=== PATIENT | male | born 1970 | race Caucasian/White ===

== ENCOUNTER 2017-11-11 15:53 | Inpatient (IN) | payer OTHER ==
[~2017-11-11] VITALS: Ht 193 cm; Wt 96.6 kg
--- NOTE | 2017-11-11 16:06 | ED PSY CRISIS COLLATERAL NOTE ---
Collateral Note Collateral Note Family/Inform/Shira Contacts: Crisis recieved call from Karen Khan APRN ([phone]). Karen stated that she started seeing the patienton 10/28/17 and prior to her assuming care, Vishal Richardson is the prior prescriber. Karen states that she thinks the patient needs psychiatric hospitalization due to hypomanic which is worsening with pt hearing voices and concentration worsening. Patient has along history of bipolar disorder. Patient recieved ECT in the 90s. 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 Patient is currently prescribed Zyprexa 20 mg, Depakote 500 mg (new), Klonopin 0.5 mg (two tabs at bedtime) and Zoloft 50 mg. Karen states she plans to discontinue the zoloft.
[2017-11-11 16:43] LABS: ABSOLUTE BASOPHIL COUNT 0 /CUMM (0.0-0.2); ABSOLUTE EOSINOPHIL COUNT 0.3 /CUMM (0.0-0.7); ABSOLUTE LYMPH COUNT 1.8 /CUMM (1.2-3.4); ABSOLUTE MONOCYTE COUNT 0.6 /CUMM (0.10-0.60); BASOPHIL % 0.5 % (0.0-2.0); EOSINOPHIL % 3.8 % (0-5); GRANULOCYTE % 58.9 % (42.2-75.2); MEAN CORPUSCULAR HGB CONC 34.1 G/DL (33.0-37.0); MEAN CORPUSCULAR VOLUME 87.9 FL (80.0-94.0); MEAN PLATELET VOLUME 8.6 FL (7.4-10.4); PLATELET COUNT 176 /CUMM (130-400); RBC DISTRIBUTION WIDTH 13.5 % (11.5-14.5); RED BLOOD CELL CT 4.55 /CUMM (4.70-6.10); WHITE BLOOD CELL COUNT 6.7 /CUMM (4.8-10.8)
--- NOTE | 2017-11-11 17:12 | ED PSYCHIATRIC COMPLAINT ---
History of Present Illness General Chief Complaint: Psychiatric Related Complaint Stated Complaint: REQ PSY EVAL Source: patient Exam Limitations: clinical condition Vital Signs & Intake/Output Vital Signs & Intake/Output Vital Signs Date Time Temp Pulse Resp B/P B/P Pulse O2 O2 Flow FiO2 Mean Ox Delivery Rate 11/13 0759 97.1 82 118/78 11/12 2001 97.7 94 138/80 11/12 1629 97 144/88 11/12 1252 78 139/82 Allergies Coded Allergies: lithium (HYPOTHYROID 11/11/17) succinylcholine (HYPOTHERMIA 11/11/17) Triage Note: PT STATES HE IS HAVING ANXIETY AND HE HAS BEEN UNABLE TO THINK AND HE STATES HE FEELS LIKE HE IS NOT PART OF HIMSELF. PT STATES THIS HAS NEVER HAPPEND TO HIM BEFORE. PT STATES HE IS NOT SURE IF HE HAS BIPOLAR OR HYPOMANIA. PT CURRENTLY ON ZYPREXA 20MG AT HS AND IS NOT BEEN ABLE TO SLEEP. PT ALSO TAKING LAMICTAL 100MG BID, DEPAKOTE 100MG HS. PT STATES HE JUST STARTED THE DEPAKOTE 3 DAYS AGO. PT DENIES SI/HI BUT STATE SHE IS IRRITABLE Triage Nurses Notes Reviewed? yes Onset: Gradual Duration: months Timing: single episode today Severity: severe Associated Symptoms: anxiety, impaired concentration, insomnia HPI: patient is a 47 y/o male, PMH of bipolar d/o with psychotic features and former diabetic, presents with acute worsening of psychosis. patient states that his symptoms have been going on for many months but it is acutely worse today as he had to leave work in order to seek evaluation. 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 he reports being unable to concentrate at work and that his head "isnt right". patient reports multiple life stressors including marriage difficulties and work stressors. he states that he is compliant with his zyprexa and lamictal. (Robb Guillermo) Reconcile Medications Clonazepam 0.5 MG TABLET 1 TAB PO TIDPRN ANXIETY (Reported) Divalproex Sodium (Depakote ER) 250 MG TAB.ER.24H 1 TAB PO QPM BIPOLAR ( Reported) Olanzapine 20 MG TABLET 1 TAB PO QPM BIPOLAR (Reported) (Ulises LYNCHDayami) Past History Travel History Traveled to [place] past 21 day No Medical History Any Pertinent Medical History? see below for history Cardiovascular: hyperlipidemia Psychiatric: anxiety, bipolar disease Surgical History Surgical History: non-contributory Psychosocial History Who do you live with Spouse What is your primary language Ecuadorean Tobacco Use: Never used ETOH Use: occasional use Illicit Drug Use: denies illicit drug use Family History Hx Contributory? 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 EENTM: Reports: no symptoms. Respiratory: Reports: no symptoms. Cardiovascular: Reports: no symptoms. GI: Reports: no symptoms. Genitourinary: Reports: no symptoms. Musculoskeletal: Reports: no symptoms. Skin: Reports: no symptoms. Neurological/Psychological: Reports: no symptoms. Hematologic/Endocrine: Reports: no symptoms. Immunologic/Allergic: Reports: no symptoms. All Other Systems: Reviewed and Negative (Robb Guillermo) Physical Exam Physical Exam General Appearance: well developed/nourished, alert, anxious, moderate distress Head: atraumatic, normal appearance Eyes: Bilateral: normal appearance, EOMI. Ears, Nose, Throat: normal ENT inspection, hearing grossly normal Neck: normal inspection Respiratory: normal breath sounds, no respiratory distress Cardiovascular: regular rate/rhythm Neurological/Psychiatric: awake, anxious, oriented x 3 Behavoir/Eye Contact/Speech: cooperative Thoughts/Hallucinations: paranoid SAD PERSONS Done? patient not suicidal (Robb Guillermo) Progress Differential Diagnosis: dementia, drug intoxication, drug overdose, drug withdrawal, BIPOLAR, PSYCHOSIS, ANXIETY, DEPRESSION, Plan of Care: Orders Procedure Date/time Status CULTURE,URINE 11/12 1342 Active URINALYSIS 11/12 1342 Complete INIT HSP (30 MIN) 11/12 UNK Complete Change service to 11/12 UNK Active Current Medications Sig/Bucky Start time Last Medication Dose Stop Time Status Admin Clonazepam 1 MG AT BEDTIME 11/12 2200 AC 11/12 (Klonopin 1MG Tab) 11/19 2158 220 Divalproex Sodium 500 MG QPM 11/12 2200 AC 11/12 (Depakote ER) 220 Olanzapine 20 MG AT BEDTIME 11/12 2200 AC 11/12 (Zyprexa) 220 Benztropine Mesylate 1 MG Q6P PRN 11/12 1715 AC 11/13 (Cogentin 1 MG 0009 Tablet) Benztropine Mesylate 1 MG Q6P PRN 11/12 1715 AC (Cogentin) Haloperidol 5 MG Q6P PRN 11/12 1715 AC 11/13 (Haldol) 0009 Haloperidol 5 MG Q6P PRN 11/12 171 AC (Haldol) Lorazepam 2 MG Q6P PRN 11/12 171 AC (Ativan) Atorvastatin Calcium 10 MG 1700 11/12 1700 AC 11/12 (Lipitor) 171 Polyethylene Glycol 17 GM DAILY 11/12 1341 AC 11/13 (Miralax) 0849 Diphenhydramine HCl 50 MG AT BEDTIME NEED.. 11/11 2230 AC (Benadryl) Lamotrigine 100 MG BID 11/11 2218 AC 11/13 (LaMICtal) 0849 Laboratory Tests 11/12/17 1801: Urine Color YEL, Urine Clarity CLEAR, Urine pH 6.0, Ur Specific [place] >= 1.030 , Urine Protein NEG, Urine Ketones TRACE H, Urine Nitrite NEG, Urine Bilirubin NEG, Urine Urobilinogen 0.2, Ur Leukocyte Esterase NEG, Ur Microscopic EXAM NOT REQUIRED, Urine Hemoglobin NEG, Urine Glucose NEG Microbiology 11/12 180 URINE ROUT: Urine Culture - RES (Robb Guillermo) Departure Departure Disposition: STILL A PATIENT Condition: Stable Clinical Impression Primary Impression: Bipolar disorder with psychotic features Referrals: Unknown (PCP/Family) Departure Forms: Customer Survey General Discharge Information Psych Admission Note Psychiatric Admission: I have seen and evaluated SHRAVAN BLACKMAN. I have also reviewed all the pertinent lab results and diagnostic results. SHRAVAN BLACKMAN will be admitted to our inpatient Psychiatric unit for treatment and care. (Robb Guillermo) Psych Admission Note Psychiatric Admission: I have seen and evaluated SHRAVAN BLACKMAN. I have also reviewed all the pertinent lab results and diagnostic results. SHRAVAN BLACKMAN will be admitted to our inpatient Psychiatric unit for treatment and care. PA/HAND SCUDDER Co-Sign Statement Statement: ED Attending supervision documentation- [] I saw and evaluated the patient. I have also reviewed all the pertinent lab results and diagnostic results. I agree with the findings and the plan of care as documented in the PA's/HAND SCUDDER's documentation. [X] I have reviewed the ED Record and agree with the PA's/HAND SCUDDER's documentation. [] Additions or exceptions (if any) to the PAs/HAND SCUDDER's note and plan are summarized below: [] (Ulises LYNCH,Dayami)
--- NOTE | 2017-11-11 19:46 | ED PSYCH CRISIS CONSULTATION ---
Crisis Consult Basic Assessment Date of Consult: 11/11/17 Responsible Person/Accompanied By: self/ Minori Insurance Authorization: Insurance #1: Insurance name: [employer] [place]. Phone number: Policy number: [id number] Group number: Authorization number: ED Provider: Patient's ED Provider: Robb Guillermo Primary Care Physician: Patient's PCP: Unknown PCP's Phone Number: Current Psychiatrist: Karen Lombardo MASTER CONTROL TECHNICIAN [phone] Chief Complaint: Psychiatric Related Complaint Patient's Quote: I don't feel I'm part of myself Present Illness: Pt is a 47 yo male presenting at [place] ED this afternoon for a psychiatric evaluation. 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 He contacted his MASTER CONTROL TECHNICIAN ( Karen Lombardo) who instructed him to come to [place] for an evaluation. Pt has a hx of inpatient psychiatric admissions in the for suicide attempts and following his last inpatient in 1997 he received outpatient ECT treatment. Pt has a diagnosis of Bipolar d/o with psychotic features and reports maintaining relative stability with medication management past 20 yrs. Pt reports starting to experience worsening symptoms about 6 months ago and more acute symptoms over the past few weeks. Pt reports inability to concentrate, inability to sleep, paranoia, hearing voices and having a sense that he is outside of his body all the time looking at himself. Pt reports being scared and worried he will lose his job. Pt reports recent med changes include starting Latuda but then stopping it because it was too expensive; increasing Zyprexa from 5mg to 20mg at begining Depakote 3 days ago. In addition to experiencing stress at work pt reports experiencing marital stress. He reports being 10 yrs and his is an MASTER CONTROL TECHNICIAN. They have 2 children and are currently in family therapy. He reports his is offering him no support during this time. Pt denies current SI/HI but reports hearing voices and seeing things out of the corner of his eyes. Pt reports occasional glass of wine 1-2x/wk and denies substance use. Pt presents as alert, cooperative, anxious and OX3. Case reviewed with Dr Carranza and pt meets criteria for inpatient psychiatric admission. Pt in agreement with plan and has signed voluntary admission paperwork. Patient's Address: [place] [address] Other Phone Number: Who Do You Live With? Family Family/Informants Interviewed: collateral provided by Karen Lombardo APRN [phone] - see note Allergies - Coded Allergies: lithium (HYPOTHYROID 11/11/17) succinylcholine (HYPOTHERMIA 11/11/17) Laboratory Results: Laboratory Tests 11/11/17 1630: Urine Opiates Screen < 100.00, Methadone Screen < 40, Barbiturate Screen < 60, Ur Phencyclidine Scrn < 6.00, Amphetamines Screen < 100, U Benzodiazepines Scrn 258 H, Urine Cocaine Screen < 50, Urine Cannabis Screen 12.30 11/11/17 1625: Anion Gap 11, Estimated GFR > 60, BUN/Creatinine Ratio 16.7, Glucose 160 H, Calcium 9.3, Total Bilirubin 0.3, AST 30, ALT 37, Alkaline Phosphatase 62, Total Protein 7.1, Albumin 4.3, Globulin 2.8, Albumin/Globulin Ratio 1.5, TSH 1.820, Free T4 0.62 L, CBC w Diff NO MAN DIFF REQ, RBC 4.55 L, MCV 87.9, MCH 30.0, RDW 13.5, MPV 8.6, Gran % 58.9, Lymphocytes % 27.5, Monocytes % 9.3, Eosinophils % 3.8, Basophils % 0.5, Absolute Granulocytes 4.0, Absolute Lymphocytes 1.8, Absolute Monocytes 0.6, Absolute Eosinophils 0.3, Absolute Basophils 0, PUBS MCHC 34.1, Serum Alcohol < 10.0 Past History Past Medical History Cardiovascular: hyperlipidemia Psychiatric: anxiety, bipolar disease Past Surgical History Surgical History: non-contributory Psychosocial History Strengths/Capabilities: pt insightful/motivated to get help. PA at [employer] Psychiatric Treatment History Psych Treatment Psychiatric Treatment Yes Inpatient Treatment Yes Outpatient Treatment Yes Location of Treatment currently outpatient with Karen Lombardo APRN; hx of inpatient-last 1997 Reason for Treatment bipolar with psychotic features Dates of Treatment multiple inpatients during . last inpatient 1997 Response to Treatment relatively stable until 6 months ago Diagnosis by History: Bipolar with psychotic features Substance Use/Abuse History Drug Use/Abuse Substances Used/Abused No Substance Abuse Treatment Substance Abuse Treatment Past Substance Abuse [place] No Inpatient Treatment No Outpatient Treatment No Comments: pt reports etoh 2x/wk - 1-2 glasses of wine; pt denies substance use Current Mental Status Mental Status Orientation: Person, Place, Situation Affect: Anxious, Flat, Hopeless, Manic Speech: WNL Neuro-vegetative: Concentration Poor, Helpless, Sleep Disturbance Appearance Appearance- Dress/Hygiene: hospital scrubs; sitting up in medical bed; good eye contact; glasses; groomed Behaviors Thought Process: WNL Thought Content: Auditory Hallucinations, Grandiose, Paranoid, Visual Hallucinations Memory: Impaired Insight: Fair SI/HI Risk Assessment Past Suicidal Ideation/Attempts Yes Current Suicidal Ideation/Att No Past Homicidal Ideation/Att: No Current Homicidal Ideation/Attempts No Degree of Intent: None Risk Factors: high anxiety/distress, history of suicide atmpts, SA/MH hospitalized Lethality Ratin PTSD Checklist PTSD Done? patient declined ED Management Sitter: Yes Restraints: No DSM5/PS Stressors/Medical Prob Diagnosis' (DSM 5, Stressors, Medical): Bipolar d/o with psychotic features F31.2 marital work Current GAF: 20 Comments: Pt reports paranoia, brennan; can't stay asleep and scared. Pt worried he will get fired if work finds out about his mental health. Departure Disposition Psych Medical Clearance Date: 11/11/17 Medically Cleared at: 0 Time Started: 1829 Time Ended: 1914 Psychiatrist Consulted: Nikki Carranza MD Date Disposition Established: 11/11/17 Time Disposition Established: 1929 Plan for Disposition - Modality: Inpatient Psychiatry Facility: [facility] Rationale for Disposition: Pt meets criteria for inpatient psychiatric admission for medication management and stabilization. Type of IP Admission: Voluntary Referrals Unknown (PCP/Family)
[2017-11-11] MEDS ORDERED: OLANZAPINE20 M1 PO (19:57)
[2017-11-11] MEDS ORDERED: DEPAKOTE ER250 M1 PO (19:57)
[2017-11-11] MEDS ORDERED: CLONAZEPAM0.5 M2 PO (19:58)
--- NOTE | 2017-11-11 20:10 | IP CRISIS DIAG ASSESS PSYCH ---
Diagnostic Assessment Basic Assessment Insurance Authorization: Insurance #1: Insurance name: [employer] [place] [place]. Phone number: Policy number: [id number] Group number: Authorization number: [id number] 1 day authorization. Case needs review tomorrow [phone] Primary Care Physician: Patient's PCP: Unknown PCP's Phone Number: Patient's Quote: I don't feel I'm part of myself Present Illness: Pt is a 47 yo male presenting at [place] ED this afternoon for a psychiatric evaluation. 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 He contacted his TUBE SORTER ( Karen Lombardo) who instructed him to come to [place] for an evaluation. Pt has a hx of inpatient psychiatric admissions in the for suicide attempts and following his last inpatient in 1997 he received outpatient ECT treatment. Pt has a diagnosis of Bipolar d/o with psychotic features and reports maintaining relative stability with medication management past 20 yrs. Pt reports starting to experience worsening symptoms about 6 months ago and more acute symptoms over the past few weeks. Pt reports inability to concentrate, inability to sleep, paranoia, hearing voices and having a sense that he is outside of his body all the time looking at himself. Pt reports being scared and worried he will lose his job. Pt reports recent med changes include starting Latuda but then stopping it because it was too expensive; increasing Zyprexa from 5mg to 20mg at begining Depakote 3 days ago. In addition to experiencing stress at work pt reports experiencing marital stress. He reports being 10 yrs and his is an TUBE SORTER. They have 2 children and are currently in family therapy. He reports his is offering him no support during this time. Pt denies current SI/HI but reports hearing voices and seeing things out of the corner of his eyes. Pt reports occasional glass of wine 1-2x/wk and denies substance use. Pt presents as alert, cooperative, anxious and OX3. Case reviewed with Dr Carranza and pt meets criteria for inpatient psychiatric admission. Pt in agreement with plan and has signed voluntary admission paperwork. Patient's Address: [address] [place] [address] Other Phone Number: Who Do You Live With? Family Feel Safe Where You Live? Yes Feel Safe in Your Relationship Yes Marital Status: Do You Have Children? Yes Primary Language? Tuvaluan Language(s) Spoken At Home: Tuvaluan Family/Informants Interviewed: collateral provided by Karen Lombardo APRN [phone] - see note Allergies - Coded Allergies: lithium (HYPOTHYROID 11/11/17) succinylcholine (HYPOTHERMIA 11/11/17) Current Medications - Scheduled Medications Clonazepam 0.5 MG TABLET 1 TAB PO TIDPRN ANXIETY #45 (Reported) Entered as Reported by Keke Rasmussen on 11/11/171957 Divalproex Sodium (Depakote ER) 250 MG TAB.ER.24H 1 TAB PO QPM BIPOLAR #60 ( Reported) Entered as Reported by Keke Rasmussen on 11/11/171956 Olanzapine 20 MG TABLET 1 TAB PO QPM BIPOLAR #30 (Reported) Entered as Reported by Keke Rasmussen on 11/11/171956 Consequences of Psych Med Use: pt reports recent med changes haven't helped Lab Results: Laboratory Tests 11/11/17 1630: Urine Opiates Screen < 100.00, Methadone Screen < 40, Barbiturate Screen < 60, Ur Phencyclidine Scrn < 6.00, Amphetamines Screen < 100, U Benzodiazepines Scrn 258 H, Urine Cocaine Screen < 50, Urine Cannabis Screen 12.30 11/11/17 1625: Anion Gap 11, Estimated GFR > 60, BUN/Creatinine Ratio 16.7, Glucose 160 H, Calcium 9.3, Total Bilirubin 0.3, AST 30, ALT 37, Alkaline Phosphatase 62, Total Protein 7.1, Albumin 4.3, Globulin 2.8, Albumin/Globulin Ratio 1.5, TSH 1.820, Free T4 0.62 L, CBC w Diff NO MAN DIFF REQ, RBC 4.55 L, MCV 87.9, MCH 30.0, RDW 13.5, MPV 8.6, Gran % 58.9, Lymphocytes % 27.5, Monocytes % 9.3, Eosinophils % 3.8, Basophils % 0.5, Absolute Granulocytes 4.0, Absolute Lymphocytes 1.8, Absolute Monocytes 0.6, Absolute Eosinophils 0.3, Absolute Basophils 0, PUBS MCHC 34.1, Serum Alcohol < 10.0 Toxicology Screen Completed? Yes Results: negative Past History Abuse/Trauma History Trauma History/Current Trauma: Denies Psychosocial History Strengths/Capabilities: pt insightful/motivated to get help. 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 last inpatient 1997 Response to Treatment relatively stable until 6 months ago Diagnosis by History: Bipolar with psychotic features Risk Factors: high anxiety/distress, history of suicide atmpts, SA/MH hospitalized Substance Use/Abuse History Drug Use/Abuse minimum 12mo Hx Substances Used/Abused No Substance Abuse Treatment Substance Abuse Treatment Past Substance Abuse [place] No Inpatient Treatment No Outpatient Treatment No Education History Highest Level of Education: advanced graduate/Ph.D. Preferred Learning Style: visual, auditory, experiential Current Mental Status Mental Status Orientation: Person, Place, Situation Affect: Anxious, Flat, Hopeless, Manic Speech: WNL Neuro-vegetative: Concentration Poor, Helpless, Sleep Disturbance Appearance Appearance- Dress/Hygiene: hospital scrubs; sitting up in medical bed; good eye contact; glasses; groomed Behaviors Thought Process: WNL Thought Content: Auditory Hallucinations, Grandiose, Paranoid, Visual Hallucinations Memory: Impaired Insight: Fair SI/HI Risk Assessment - Minimum 6mo History- Past Suicidal Ideation/Attempts Yes Current Suicidal Ideation/Att No Past Homicidal Ideation/Att: No Current Homicidal Ideation/Attempts No Degree of Intent: None Risk Factors: high anxiety/distress, history of suicide atmpts, SA/MH hospitalized Lethality Ratin Needs/Init [place] Plan/Goals: Psychiatric evaluation medication assessment individual, family and group tx coordinated discharge planning AUDIT-C Questionnaire: AUDIT-C Questionnaire: Response Value ETOH use in the past year 2-4 times/month 2 # drinks typical/day 1 or 2 0 6 or > drinks per occasion Less than monthly 1 Total 3 DSM5/PS Stressors/Medical Prob Diagnosis' (DSM 5, Stressors, Medical): Bipolar d/o with psychotic features F31.2 marital work Current GAF: 20 Comments: Pt reports paranoia, brennan; can't stay asleep and scared. Pt worried he will get fired if work finds out about his mental health.
--- NOTE | 2017-11-12 07:59 | Cons- Medical ---
General Information and HPI Consulting Request Date of Consult: 11/12/17 Requested By: Nikki Carranza MD Reason for Consult: Medical H&P Source of Information: patient, old records History of Present Illness: 47-year-old male past medical history of questionable bipolar disorder who is here for depressive and psychotic symptoms. I was called for medical H&P. Patient takes medication for hyperlipidemia and says he's had 5 back surgeries and occasionally uses Motrin for pain. He says that when he was much heavier he had uncontrolled sugars but since is voluntary weight loss his sugars have been in control. Denies nausea vomiting or diarrhea and denies cough or sputum. Says he is chronically constipated and also says that he's been having a problem with urination in terms of not being able to make it to the bathroom on time. Allergies/Medications Allergies: Coded Allergies: lithium (HYPOTHYROID 11/11/17) succinylcholine (HYPOTHERMIA 11/11/17) Home Med List: Clonazepam 0.5 MG TABLET 1 TAB PO TIDPRN ANXIETY (Reported) Divalproex Sodium (Depakote ER) 250 MG TAB.ER.24H 1 TAB PO QPM BIPOLAR ( Reported) Olanzapine 20 MG TABLET 1 TAB PO QPM BIPOLAR (Reported) Current Medications: Current Medications Sig/Bucky Start time Last Medication Dose Route Stop Time Status Admin Clonazepam 0.5 MG Q8P PRN 11/11 2215 AC PO 11/18 2214 Diphenhydramine HCl 50 MG AT BEDTIME NEED.. 11/11 2230 AC PO Divalproex Sodium 500 MG QPM 11/12 2200 AC PO Lamotrigine 100 MG BID 11/11 2218 AC 11/11 PO 2311 Lorazepam 0 .STK-MED ONE 11/11 1918 DC PO Lorazepam 1 MG ONE ONE 11/11 1914 DC 11/11 PO 11/11 1915 191 Olanzapine 20 MG AT BEDTIME 11/12 2200 AC PO Review of Systems Review of Systems Constitutional: Denies: no symptoms, chills, diaphoresis, fever. Cardiovascular: Denies: no symptoms, chest pain, edema, orthopena. Respiratory: Denies: no symptoms, cough, hemoptysis, orthopnea. GI: Reports: no symptoms, constipation. Genitourinary: Reports: urgency. All Other Systems: Reviewed and Negative Past History Travel History Traveled to [place] past 21 day No Medical History Cardiovascular: hyperlipidemia Psychiatric: anxiety, bipolar disease Surgical History Surgical History: Pt says he's had 5 back surgeries Psychosocial History Where Do You Live? Home Who Do You Live With? 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 Family history is positive for diabetes, in his father and grandfather. 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 Exam & Diagnostic Data Last 24 Hrs of Vital Signs/I&O Vital Signs Date Time Temp Pulse Resp B/P B/P Pulse O2 O2 Flow FiO2 Mean Ox Delivery Rate 11/11 1930 97.6 74 16 132/80 97 Room Air 11/11 1811 97 Room Air 11/11 1602 97.4 88 16 134/85 96 Room Air Intake & Output 11/12 0800 11/12 0000 11/11 1600 Intake Total 0 Output Total Balance 0 Intake, IV 0 Patient 96.615 kg 96.615 kg Weight Weight Reported by Patient Measurement Method Physical Exam General Appearance: well developed/nourished, no apparent distress, alert, awake , anxious Head: atraumatic, normal appearance Eyes: Bilateral: normal appearance, PERRL, EOMI. Ears, Nose, Throat: normal pharynx, normal ENT inspection Neck: normal inspection, supple, full range of motion Respiratory: normal breath sounds, chest non-tender, no respiratory distress, quiet respiration Cardiovascular: regular rate/rhythm Gastrointestinal: normal bowel sounds, soft, non-tender, no organomegaly Back: normal inspection, normal range of motion Neurologic/Psych: no motor/sensory deficits, awake, alert, oriented x 3, normal gait Other Physical Findings: Patient's motor and sensory exam is within normal limits. Reflexes are 2+ and symmetric. Cranial nerves III-12 are intact. Gait is normal. Last 24 Hrs of Labs/Yusef: Laboratory Tests 11/11/17 1630: Urine Opiates Screen < 100.00, Methadone Screen < 40, Barbiturate Screen < 60, Ur Phencyclidine Scrn < 6.00, Amphetamines Screen < 100, U Benzodiazepines Scrn 258 H, Urine Cocaine Screen < 50, Urine Cannabis Screen 12.30 11/11/17 1625: Anion Gap 11, Estimated GFR > 60, BUN/Creatinine Ratio 16.7, Glucose 160 H, Calcium 9.3, Total Bilirubin 0.3, AST 30, ALT 37, Alkaline Phosphatase 62, Total Protein 7.1, Albumin 4.3, Globulin 2.8, Albumin/Globulin Ratio 1.5, TSH 1.820, Free T4 0.62 L, CBC w Diff NO MAN DIFF REQ, RBC 4.55 L, MCV 87.9, MCH 30.0, RDW 13.5, MPV 8.6, Gran % 58.9, Lymphocytes % 27.5, Monocytes % 9.3, Eosinophils % 3.8, Basophils % 0.5, Absolute Granulocytes 4.0, Absolute Lymphocytes 1.8, Absolute Monocytes 0.6, Absolute Eosinophils 0.3, Absolute Basophils 0, PUBS MCHC 34.1, Valproic Acid 23.6 L, Serum Alcohol < 10.0 Assessment/Plan Assessment/Plan 47-year-old male past medical history of hyperlipidemia who is here with bipolar /psychotic symptoms. Continue his simvastatin. Given the f urgency will check a UA urine culture. He also is likely prediabetic but he already knows to tightly control his diet. He needs outpatient urological follow-up on discharge. Problem List: 1. Bipolar disorder with psychotic features Consult Acknowledgment - Thank you for your consult request.
[2017-11-12 08:04] VITALS: BP 137/75
[2017-11-12 12:52] VITALS: BP 139/82
--- NOTE | 2017-11-12 13:30 | SOCIAL WORKER PROG NOTE PSYCH ---
Mattie Shah 11/12/17 1324: Social Work Progress Note Progress Note Major Appliance Assembly Supervisor met with Ian today initially in his room. Ian stated that he "didn't like this room" because it is too "loud" and he was concerned that other people might hear what this chart writer and he were talking about. Major Appliance Assembly Supervisor and he moved to the conference room where Ian said he felt better about. He presented as paranoid in this room as well, asking who the various staff walking by were. He was concerned that some of the staff might be from [employer] and that they would tell his employer ([employer]) about his mental health problems. His speech was highly pressured. He was oriented to person, and time, but could not identify the name of [facility]. He fidgeted in his seat, moved furniture around and picked at his skin during the interview. Ian gave this chart writer an overview of what brought him to the hospital. He has had decreased sleep, sleeping about 3-4 hours each night for the past year. He reported increased moodiness, irritability, anger and "nastiness" as well as an inability to concentrate. Ian stated that he is feeling unsafe, overwhelmed and scared that "what happened before will happen again". Major Appliance Assembly Supervisor asked Ian what he meant by this. Ian told chart writer he is scared that he will be out of control again as he was in the past. He spoke of his past mental health history, when he was 21 and attempted suicide twice by hanging. After both attempts he was admitted to [facility] (he stated it was a psychiatric inpatient unit that does not exist anymore). 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 During these two admissions, he stated that his behaviors were out of control, eloping once and destroying a sink during the other admission. After several more psychiatric inpatient admissions at various hospitals and ECT, Ian said that he maintained stability for about 23 years (until now). Despite feeling scared about starting to feel out of control again, Ian denied SI. Ian identified various stressors as the possible reason for the resurfacing of his manic symptoms. He spoke of marital stress which largely stems from their differing parenting ideology. He describes his as a "tiger mom" which stems from her strict upbringing in a [place] immigrant family. He feels that she is over-involving their children in extra-curricular activities and obsessing about their achievements. His son is 9 and his daughter is 6. He stated that he and his never have time alone and that he never has time to himself as they are always bringing their children to activities (swimming, soccer, [place] lessons, [employer], etc.). He stated that he is very distressed by the fact that his is mean to his children, quoting her as saying, "you ( children) are a disappointment to me every day". He disagrees with this and feels that his children should not have all this pressure put upon them. He also stated that his son has started to "act out" recently which causes upset and turmoil in the house. Ian also reported being stressed by several break-ins to the family's cars. Additionally, his house is physically in disarray as he and his ran out of money while renovations were being done, and as such, construction ceased. He stated that while he loves his work, his lack of sleep as well as his preoccupation with his family problems have made it very difficult for him to concentrate at work. He was very distressed when speaking about an error he made last week when he removed a line from the wrong patient. On a positive note, he spoke with the Analyst Competitive Intelligence of his department last year about adjusting his schedule so that he did not have to work overnights anymore as doing so was affecting his medication schedule and sleep schedule. Ian denied AH/VH but stated that sometimes he hears the voice of the person he is with. For example, he stated that if he is sitting with his , he will hear her say something, but that she does not actually say what he heard. Ian was open to having a family meeting with his . When asked what he wanted out of treatment, he stated "I just want for my meds to be fixed, stay in bed for 4 days, and feel better. And then see somebody for outpatient therapy and meds like I was doing. I want to get back to my kids." Ian signed releases for his and his prescriber, Karen Lombardo. Ian's , Richi was contacted ([phone]) for a family meeting. It was scheduled for November 14 at 2:00PM. Major Appliance Assembly Supervisor called Lucio VASQUEZ for insurance review. He was approved for 2 more days and will need a review on November 14. The reviewers name is Suze and her direct number is .
--- NOTE | 2017-11-12 14:24 | CPS PROVIDER INIT ASMT PSYCH ---
Psychiatric Admission Clinical Academic Allergist's Note Reviewed: Yes Patient Seen and Examined: Yes Identifying Information: 47-year-old white male who presented to the emergency department on 11/11/2017 for psychiatric evaluation at the recommendation of his outpatient nurse practitioner. Chief Complaint: "I don't feel well" Reaction to Hospitalization: The patient signed himself in voluntarily History of Present Illness Onset of Illness: The patient reportedly has been with a nurse practitioner in [facility] not for long he said about 2-3 weeks. There has been recent changes in his medication. The patient presented to the emergency department at [facility] for psychiatric evaluation. The patient has had past inpatient psychiatric admission in the and he has had multiple medication trials in the past and ECT treatment reportedly for a diagnosis of bipolar mood disorder with psychotic features. The patient reported that his symptoms have been worsening over the past 6 months and more so over the past few weeks with inability to concentrate and inability to sleep paranoia hearing voices and having the sense that he is outside of his body all the time and looking on to himself he reports being scared and worried that he will lose his job. Circumstances Leading to Admission: The increase in symptoms over the past few weeks including the appearance of what seems to be psychotic symptoms Problem(s) Justifying Need for Admission: Significant symptoms that have been not that responsive to aggressive medication management Past Psychiatric History Past Diagnosis(es)- if any: History of bipolar mood disorder Past Precipitating Factors- if any: Presupposed previous prescription precipitating factors included poor response to medications and several medication trials over the years including ECT - Include inpatient and outpatient treatment Treatment History: The patient's has had history of bipolar disorder since the he reported that he has had treatments at [facility] which is part of [place] History of Suicide Attempts or Gestures History of suicide attempts in the . However the patient's last inpatient psychiatric admission seems to have been in 1997 Substance Abuse History: The patient has no known substance abuse history or alcohol abuse history Allergies: Coded Allergies: lithium (HYPOTHYROID 11/11/17) succinylcholine (HYPOTHERMIA 11/11/17) Home Med List: Clonazepam 1 mg at bedtime Depakote olanzapine 20 mg at bedtime - Include any medical condition(s) that may - impact the patient's recovery/remission Past Medical History: The patient reported that he has been on so many different antidepressants and antipsychotics over the years since the early Past History Medical History Cardiovascular: hyperlipidemia Psychiatric: anxiety, bipolar disease Isolation History: Standard Surgical History Surgical History: none Psychiatric Family/Social Hx Family History Psychiatric Illness: Unknown at this point Substance Use: Unknown at this point Suicides: Unknown at this point Social History Living Situation: Lives with family however it seems that his marriage is strained Significant Relationships (family/friends): and kids 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 - #1 Recognizing dangerous situations. - #2 Coping Skills. - #3 Basic information about quitting. Status of Tobacco Cessation Counseling: Not Applicable Cessation Med Status Not Applicable Alcohol Screening - ETOH screen POS if BAL >=80 or Audit-C>= M4/F3 Audit-C Score from Diag Assess: 3 Blood Alcohol Level: Laboratory Tests 11/11 1625 Toxicology Serum Alcohol (<10 MG/DL) < 10.0 Alcohol Use Screening Results: Neg per Audit C &/or BAL - If ETOH counseling indicated - the following topics are required. - #1 Express concern about the patient's - drinking at unhealthy levels, include informing - of national norms for moderate drinking: - men <= 14 drinks/week, max 4 drinks/occasion - women <= 7 drinks/week, max 3 drinks/occasion - #2 Providing feedback, including linking alcohol to - negative physical effects (liver injury, hypertension) - negative emotional effects (relationship problems and - depression) - negative occupational consequences (reduced work - performance) - #3 Advising the patient to abstain from alcohol or - to drink below national norms for moderate drinking - (as listed above). Status of ETOH Use Counseling: N/A B/C NO ETOH Use Metabolic Screening - Screen if on a Neuroleptic Medication - Metabolic screening should include: - Blood Pressure, BMI, Glucose or Hgb A1c, & a - Lipid profile from within the past 365 days. Metabolic Screening Patient on a neuroleptic(s) . BMI: 25.900 Blood Pressure: 139/82 Laboratory Results From [facility] (If applicable): I will be calling the patient's nurse practitioner is the prescribing his Zyprexa. The patient reported that he has been on it for a long while and I will check if there was any complete metabolic panel done to avoid repeating these tests Exam and Plan Mental Status Examination Ambulation Status: Fully mobile Appearance: Tall thin white male Attitude towards examiner: Cooperative, and pleasant Psychomotor activity: Reduced psychomotor activity Behavior: No abnormalities Quality of speech: Normal speech Affect: Constricted Mood: Depressed and anxious Suicidal Ideation: No suicidal ideation Homicidal Ideation: No homicidal ideation Hallucinations: Recent auditory hallucinations Paranoid/Delusional Material: Recent paranoia Difficulties with thought organization: Difficulties with thought organization Insight: Good insight Judgment: good judgment Orientation: Oriented to time place and person Cognition: Seems to be struggling with attention and concentration and memory Memory Function: Seems to have some memory impairment Estimate of intellectual functioning: Average Assets/Strengths Patient Identified Assets/Strengths: Patient is intelligent and honest and likable Impression/Plan Impression and Plan: Patient is a 47-year-old white male who presents to the emergency department for an evaluation because of increasing psychiatric symptoms over the past few weeks to a few months including inability to concentrate inability to sleep paranoia hearing voices and having the sense that he is outside his body The patient has had psychiatric illness since the thought to be bipolar 1 disorder the patient seems to be struggling currently with the acute decompensation - Include all active medical diagnosis that require tx DSM 5 Diagnosis(es): Bipolar 1 disorder most recent episode depressed with psychotic features - Initial Tx Plan for Active Psych & Medical Conditions Treatment Plan: Inpatient psychiatric care with 15 minute checks. Nursing assessment once a shift Social work to reach out to family and coordinate discharge plans Group therapy milieu therapy and activities on the unit The patient's Klonopin will be changed to 1 mg at bedtime The patient's Lamictal will be increased to 150 mg twice daily I would reach out to his nurse practitioner in [place] because he thinks that he should be on Zoloft. The patient will be seen daily for medication management and reevaluation of his mental state - Factors that would help patient function - in a less restrictive setting. Factors: finding an effecective medication regimen
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
[2017-11-12 16:29] VITALS: BP 144/88
[2017-11-12 20:02] VITALS: BP 138/80
[2017-11-13 07:59] VITALS: BP 118/78
--- NOTE | 2017-11-13 08:53 | SOCIAL WORKER PROG NOTE PSYCH ---
See Addendum Social Work Progress Note Progress Note Introduced myself to Ian who was sitting in the lounge. He looked distressed. Stated he was not doing well. Thoughts are disorganized and he is feeling confused. He stated he doesn't remember alot from yesterday. Seemed somewhat paranoid, with eyes darting around and whispered that what we would talk about would be confidential. I told him I keep notes, but no one from outside of this unit would know information without him giving me permission to inform. He doesn't like being in the hospital, but knows that he needs tx right now. Reminded him that given his profession that he needs to be well and take care of himself, before he can help others. He doesn't feel supported by his right now. Disappointed that she didn't come to see him yesterday and that she won't be coming today. He stated he would be surprised if she comes to the family meeting tomorrow. Asked how he slept last night? He didn't really seem to know. Appetite is good. States he often garza weight when he's sick. Talked about his attempt to try and find a psychiatrist in the community and that it was really hard. Finally got connected a couple weeks ago with Karen Lobmardo APRN. He plans to continue to see her when he leaves. Stated he feels more comfortable talking to a female.
--- NOTE | 2017-11-13 13:59 | CP SOUTH PROGRESS NOTE PSYCH ---
Psych (Inpt) Progress Note Progress Note Ian's mental state and progress on the unit were discussed in interdisciplimary treatment team meeting Summary: 47-year-old white male who presented to the emergency department on 11/11/2017 for psychiatric evaluation at the recommendation of his outpatient nurse practitioner: "I don't feel well" The patient reportedly has been with a nurse practitioner in [place] and [place] not for long he said about 2-3 weeks. There has been recent changes in his medication. The patient presented to the emergency department at [facility] for psychiatric evaluation. The patient has had past inpatient psychiatric admission in the and he has had multiple medication trials in the past and ECT treatment reportedly for a diagnosis of bipolar mood disorder with psychotic features. The patient reported that his symptoms have been worsening over the past 6 months and more so over the past few weeks with inability to concentrate and inability to sleep paranoia hearing voices and having the sense that he is outside of his body. Mental Status Examination Ian received PRN Haldol and Ativan yesterday for feeling agitated. He was dressed in hospital scrups today. He believes he is about the same as yesterday (neither better not worse) Tall thin white male, cooperative, and pleasant, staff reported a sense of restless and rocking motion patient acknowkledged feeling a sense of inner agitation, he also reported that he smells urine every where, he was on phenobarb as a child, he showed good eye contact, still having an undercurrent of paranoia, normal speech, constricted affect, depressed mood, anxious, no suicidal ideation, no suicidal ideation, no homicidal ideation, olfactory hallucinations ? hearing his own thoughts in his own voice, + difficulties with thought organization, has insight Oriented to time place and person Seems to be struggling with attention and concentration and some memory impairment Assessment: A 47-year-old white male who presents to the emergency department for an evaluation because of increasing psychiatric symptoms over the past few weeks to a few months including inability to concentrate inability to sleep paranoia hearing voices and having the sense that he is outside his body, patient has had psychiatric illness since the thought to be bipolar 1 disorder, the patient seems to be struggling currently with the acute decompensation DSM 5 Diagnosis(es): Bipolar 1 disorder most recent episode depressed with psychotic features Treatment Plan: Continue inpatient psychiatric care with 15 minute checks. Continue Nursing assessments once a shift Social work to reach out to family and coordinate discharge plans Continue Group therapy milieu therapy and activities on the unit Increase Klonopin to 1.5 mg at bedtime Continue Lamictal 150 mg twice daily Resume Sertraline 200 mg daily (at bedtime) The patient will be seen daily for medication management and reevaluation of his mental state Patient is intelligent and honest and likable Impression/Plan Impression and Plan: Patient is a 47-year-old white male who presents to the emergency department for an evaluation because of increasing psychiatric symptoms over the past few weeks to a few months including inability to concentrate inability to sleep paranoia hearing voices and having the sense that he is outside his body The patient has had psychiatric illness since the thought to be bipolar 1 disorder the patient seems to be struggling currently with the acute decompensation - Include all active medical diagnosis that require tx DSM 5 Diagnosis(es): Bipolar 1 disorder most recent episode depressed with psychotic features - Initial Tx Plan for Active Psych & Medical Conditions Treatment Plan: Inpatient psychiatric care with 15 minute checks. Nursing assessment once a shift Social work to reach out to family and coordinate discharge plans Group therapy milieu therapy and activities on the unit The patient's Klonopin will be changed to 1 mg at bedtime The patient's Lamictal will be increased to 150 mg twice daily I would reach out to his nurse practitioner in [place] because he thinks that he should be on Zoloft. The patient will be seen daily for medication management and reevaluation of his mental state - Factors that would help patient function - in a less restrictive setting. Factors: finding an effecective medication regimen DICTATED BY: Andrei Rojas MD mental state - Factors that would help patient function - in a less restrictive setting. Factors: finding an effecective medication regimen DICTATED BY: Andrei Rojas MD
[2017-11-13 15:53] VITALS: BP 128/74
[2017-11-13 19:53] VITALS: BP 125/74
[2017-11-14 08:13] VITALS: BP 121/70
[2017-11-14 12:16] VITALS: BP 130/77
--- NOTE | 2017-11-14 14:54 | CP SOUTH PROGRESS NOTE PSYCH ---
Psych (Inpt) Progress Note Progress Note The interdisciplimary treatment team discussed Ian's treatment and progress Mental Status Examination Ian was feeling less agitated until about 2:00 pm when he learned that his wifeis not able to make it in person to the family meeting. He believes he is about the same as yesterday. He was cooperative and pleasant. He was not restless. He acknowledged less inner agitation, he showed good eye contact, still having an undercurrent of paranoia, normal speech, constricted affect, depressed mood, anxious, no suicidal ideation, no suicidal ideation, no homicidal ideation, olfactory hallucinations, ? hearing his own thoughts in his own voice, + difficulties with thought organization, Oriented to time place and person, struggling with attention and concentration and some memory impairment Assessment: A 47-year-old white male who presents to the emergency department for an evaluation because of increasing psychiatric symptoms over the past few weeks to a few months including inability to concentrate inability to sleep paranoia hearing voices and having the sense that he is outside his body, patient has had psychiatric illness since the thought to be bipolar 1 disorder, the patient seems to be struggling currently with the acute decompensation DSM 5 Diagnosis(es): Bipolar 1 disorder most recent episode depressed with psychotic features Treatment Plan: Continue inpatient psychiatric care with 15 minute checks. Continue Nursing assessments once a shift Continue Group therapy milieu therapy and activities on the unit Increase Klonopin to 2 mg at bedtime Continue Lamictal 150 mg twice daily Resume Sertraline 200 mg daily (at bedtime) The patient will be seen daily for medication management and reevaluation of his mental state
--- NOTE | 2017-11-14 14:59 | OP PSYCH INCIDENTAL NOTE ---
OPS Incidental Note Details: Correction: Depakote increased to 1000 mg at bedtime and will re-check level in 4 days
[2017-11-14 16:28] VITALS: BP 140/77
--- NOTE | 2017-11-14 16:43 | SOCIAL WORKER PROG NOTE PSYCH ---
Social Work Progress Note Progress Note Called Mrs. Flor to confirm the 2pm meeting. She returned the call to say that she couldn't be available in person and only by phone, due to a problem with her full stack java developer. Ian was upset initially upon hearing this, but able to calm down and be less agitated by the time of the meeting. Dr. Rojas was present for the meeting. Mrs. Flor stated that over the past couple of months Ian was not sleeping well, more angry, and having difficulty focusing. She shared that there have been many stressors that have also effected them. She shared that they have had difficulty with their 9 year old son "acting out." This behavior seemed to only be at home and not at school. They have gotten tx for him in the past and she stated she will look into tx again for him. She also stated that Ian and her haven't been communicating well. She feels that is on both of them, but she feels that Ian doesn't share information with her. Ian was quite initially, but towards the end of the meeting really started expressing some of the feelings that he has been feeling upset over. He shared how he doesn't feel that he is able to express or give feedback without it being shot down. He doesn't agree with his 's parenting style and doesn't feel that he has any control over anything happening in the family. He and his stated they are willing to work on their marriage and that things are repairable , but at times during the meeting Ian's non-verbal cues seem to indicate that he may be thinking otherwise. Told both that I could offer them some referrals to a marriage and family therapist. Discussed how Ian will be here through the weekend and we will see how he is doing next week in terms of discharge. Called Lucio for review. Was given 4 additional days with review on 11/18.
[2017-11-14 19:49] VITALS: BP 120/77
[2017-11-15 07:54] VITALS: BP 135/88
[2017-11-15 12:02] VITALS: BP 143/75
--- NOTE | 2017-11-15 12:14 | CP SOUTH PROGRESS NOTE PSYCH ---
Psych (Inpt) Progress Note Progress Note Include the following elements, when applicable: Involvement in the active treatment of the patient with behavioral observations of the patient and the patient's response to the treatment. Review of the ongoing treatment process in the context of the treatment plan. Indication of how multi-disciplinary staff members are carrying out the treatment plan. Plans for future interventions and recommendations for revision of the treatment plan. Liaison with other physicians/providers. Progress Note: Chart reviewed. Progress discussed with nursing staff. Interviewed patient this morning. Patient reports his greatest concern is difficulty with sleep. Says that he is only able to get sleep for about 1-2 hour chunks, with frequent awakenings. Feels that if he could just sleep 6 hours straight he would feel much better. He does, however, note overall improvement. Feels as though his mood is slightly less depressed, and his sense of agitation has improved to some extent. Does find himself harboring some aggressive feelings towards another patient on the unit who is loud and intrusive. He denies any SI or HI however. Denies raji AVH, however does report having frequent episodes of dj vu and frequent periods where he believes he has said something however the individual with whom he's speaking is unable to recall him saying anything. He is quite upset that his has not come to visit him. Vital signs were reviewed and were within normal limits. There are no new laboratory results today. Mental status exam: Well groomed man of apparent stated age. Appears mildly sedated, positive psychomotor retardation. However good eye contact. Speech was of low volume, otherwise within normal limits. Mood was "I don't know, not that good ". Affect was constricted, mildly labile. Thought process was somewhat circumstantial. Content without SI or HI, does note some perceptual abnormalities, though no raji auditory or visual hallucinations. Cognition he reports subjectively to be slowed, with difficulty with short-term memory. His insight and judgment is fair. Assessment and plan: 47-year-old man with bipolar 1 disorder presenting with depressed mood with psychotic features as well as internal sense of agitation intention, that does seem to be slowly improving with inpatient treatment. Sleep difficulty including difficulty falling and difficulty maintaining sleep remain his greatest concern. Will titrate Zyprexa to 25 mg nightly from 20 mg, discussed with the patient, who agrees. Otherwise will continue remainder medications as per primary team. He is struggling with some adverse side effects such as dry mouth, that will be closely monitored.
[2017-11-15 15:29] VITALS: BP 129/92
[2017-11-15 19:57] VITALS: BP 149/89
[2017-11-16 07:32] VITALS: BP 116/82
--- NOTE | 2017-11-16 11:49 | CP SOUTH PROGRESS NOTE PSYCH ---
Psych (Inpt) Progress Note Progress Note Include the following elements, when applicable: Involvement in the active treatment of the patient with behavioral observations of the patient and the patient's response to the treatment. Review of the ongoing treatment process in the context of the treatment plan. Indication of how multi-disciplinary staff members are carrying out the treatment plan. Plans for future interventions and recommendations for revision of the treatment plan. Liaison with other physicians/providers. Progress Note: Chart reviewed. Progress discussed with nursing staff. Interviewed patient this morning. Per sleep report, was noted to have some broken sleep, though did have multiple hours of good sleep. This morning he reports that he has been having some visual hallucinations of "bugs on the wall ". He reports these are disturbing to him. He denies ever having this before and that they began last evening. We discuss increasing and dividing his Zyprexa to 10 mg in the morning and 20 mg at night which is in agreement with. Otherwise however, he reports feeling a reduction in some of the internal tension and agitation feelings he had noted earlier in this admission. Reports his mood remains down. Did say that he spoke with his on the phone yesterday and that the conversation went well. He denies any SI or HI. Denies any auditory hallucinations today. Vital signs were reviewed and were within normal limits. There are no new laboratory results today. Mental status exam: Well groomed man of apparent stated age. Again appears somewhat somnolent with positive psychomotor retardation. However good eye contact. Speech was of low volume, otherwise within normal limits. Mood was "these bugs are worrying me ". Affect was constricted, mildly labile. Thought process was somewhat circumstantial. Content without SI or HI. He notes VH of bugs on the wall beginning yesterday and denies any current AH. Cognition he continues to report is subjectively slowed, with difficulty with short-term memory. His insight and judgment is fair. Assessment and plan: 47-year-old man with bipolar 1 disorder presenting with depressed mood with psychotic features as well as internal sense of agitation that does seem to be slowly improving with inpatient treatment. Reports development of visual hallucination of bugs on the wall beginning last evening which is new for him. Unclear as to the etiology of this, especially given visual hallucinations being fairly unusual in psychiatric disorders and does not have a known seizure history and is not withdrawing from any substances to her knowledge. Will increase his dose of Zyprexa and divide it to 10 mg in the morning and 20 mg at night in hopes of addressing these concerning symptoms. His sleep does seem to be improving and will continue to monitor. Will continue present management otherwise.
[2017-11-16 12:20] VITALS: BP 128/79
[2017-11-16 15:21] VITALS: BP 129/84
[2017-11-16 20:18] VITALS: BP 120/75
[2017-11-17 08:01] VITALS: BP 131/79
[2017-11-17 11:59] VITALS: BP 120/72
--- NOTE | 2017-11-17 13:15 | CP SOUTH PROGRESS NOTE PSYCH ---
Psych (Inpt) Progress Note Progress Note The interdisciplinary treatment team discussed Ian's treatment and progress in the morning report. I reviewed Dr. Lynn notes from and Friday Mental Status Examination Ian reported visual and possibly tactile hallucinations, less olfactory hallucinations. He was cooperative but was paranoid about the med student. He seemed over-sedated/too tired. His Zyprexa was increased over the weekend, slightly slurred speech, constricted affect, depressed mood, anxious, no suicidal ideation, no homicidal ideation, May be hearing his own thoughts in his own voice, difficulties with thought organization, Oriented to time place and person, struggling with attention and concentration and some memory impairment Assessment: Ian is a 47-year-old White male who was admitted for increasing psychiatric symptoms over the past few weeks to a few months including inability to concentrate inability to sleep paranoia hearing voices and having the sense that he is outside his body, patient has had psychiatric illness since the thought to be bipolar 1 disorder, the patient seems to be struggling currently with the acute decompensation Diagnoses: Bipolar 1 disorder most recent episode depressed with psychotic features Treatment Plan: Continue inpatient psychiatric care with 15 minute checks. Continue nursing assessments once a shift Continue group therapy milieu therapy and activities on the unit Decrease Klonopin to 1 mg at bedtime Continue Lamictal 150 mg twice daily Continue Sertraline 200 mg daily (at bedtime) Reduce/change Zyprexa to 25 mg at bedtime The patient will be seen daily for medication management and reevaluation of his mental state
--- NOTE | 2017-11-17 14:33 | SOCIAL WORKER PROG NOTE PSYCH ---
Social Work Progress Note Progress Note Ian's affect looked distressed. He stated he isn't doing well. Complained of seeing ants on the elkins late in the evening last night. He said that is a new symptom for him. Denies hearing voices, but does state that he kept smelling urine. Reported that he spoke to the doctor about getting an MRI. He seemed to what to challenge the type of MRI he was getting and had further questions for the doctor about that. He denies feeling as "rushed" as he was and stated "I think I have turned the other way." Feels depressed and very anxious. On a scale from 1-10 (10 being most severe), he rates himself as an 8 for anxiety. He denies SI. He talked about "snapping" at a female mental health worker this morning. He yelled at her and called her "Bitchy." He said he feels quick to snap at people. Seems irritable. Asked if he saw his over the weekend? He said he had not. He did speak with her over the phone. I shared some information with him for a marriage therapist in [place]. Gave him the contact information. He is preoccupied with the cost of his inpatient stay. I informed him that billing shared that his insurance would cover 80%. He is now wondering if he went to [place] if it would be covered 100%? He would like to find out this information. He certainly doesn't feel he is ready to leave, but he is feeling anxious about the financial peice. He stated that he and his have to pay his 's Mother 50,000 a year and he is not done paying for all of his house renovations that have started and need to be finished.
[2017-11-17 16:27] VITALS: BP 143/77
--- NOTE | 2017-11-17 17:34 | MRI REPORT ---
MR BRAIN WITHOUT CONTRAST CLINICAL INFORMATION: Olfactory and visual and tactile hallucinations. Rule out temporal lobe space-occupying lesion. COMPARISON: None available. TECHNIQUE: MRI of the brain without contrast was obtained using routine sequences. FINDINGS: Hippocampi are symmetric in size and normal in morphology without evidence of intrinsic signal abnormality. Comment for artifact no definite true parenchymal signal abnormality is appreciated. No space-occupying lesions. There is no hydrocephalus, extra-axial surface collection, or herniation. The major flow voids at the skull base are preserved. There is no acute infarct on diffusion-weighted imaging. There is no intracranial hemorrhage on the gradient recalled echo acquisition. The midline structures are normal. The cerebellar tonsils are normally positioned. The cerebellum and brainstem are normal. The craniocervical junction is normal. Osseous marrow signal intensity is homogenous. The visualized soft tissues are unremarkable. IMPRESSION: Unremarkable MRI of the brain. No temporal lobe pathology is appreciated.
[2017-11-17 19:58] VITALS: BP 128/86
[2017-11-18 08:04] VITALS: BP 140/66
--- NOTE | 2017-11-18 11:34 | SOCIAL WORKER PROG NOTE PSYCH ---
Social Work Progress Note Progress Note Ian was sitting by the fishtank with his legs crossed feet up. He looked extremely distressed and stated he was seeing ants all over the floor. Nursing was in the process of getting Liane PRN of [facility]. Ian stated he slept last night and it was so good, but during group today he started seeing ants and he had to get up and leave. Encouraged Ian to calm his anxiety by doing some meditation with his breath. He did this and stated it was helping. Encouraged him to keep working on that. Called Suze at [facility] and gave updated clinical information. She authorized 3 nights with review due on 11/21.
[2017-11-18 12:19] VITALS: BP 124/75
--- NOTE | 2017-11-18 12:50 | CP SOUTH PROGRESS NOTE PSYCH ---
Psych (Inpt) Progress Note Progress Note The interdisciplinary treatment team met this morning and discussed Ian's treatment and progress MRI brain was normal Mental Status Examination: Ian initially reported feeling much better after a full nights sleep. A couple of hours later he seemed worse and distraught that he was seeing ants again (). Before that he had reported no visual or olfactory hallucinations, Ian was cooperative /less paranoid. This morning there was no evidence of over-sedation or tiredness Patricia affect remains constricted, depressed mood, anxious, no suicidal ideation, no homicidal ideation, Ian seemed to still have difficulties with thought organization (with relative improvement over the past few days). He was oriented to time place and person, struggling with attention and concentration and some memory impairment Assessment: Ian is a 47-year-old White male who was admitted for increasing psychiatric symptoms over the past few weeks to a few months including inability to concentrate inability to sleep paranoia hearing voices and having the sense that he is outside his body, patient has had psychiatric illness since the thought to be bipolar 1 disorder Diagnoses: Bipolar 1 disorder most recent episode depressed with psychotic features Treatment Plan update: Continue inpatient psychiatric care with 15 minute checks. Continue nursing assessments once a shift Continue group therapy, Milieu therapy and activities on the unit Continue Klonopin 1 mg at bedtime Continue Lamictal 150 mg twice daily Continue Sertraline 200 mg daily (at bedtime) Reduce/change Zyprexa to 20 mg at bedtime Another voice mail left for Karen Lombardo APRN The patient will be seen daily for medication management and reevaluation of his mental state
[2017-11-18 16:04] VITALS: BP 136/76
[2017-11-18 20:14] VITALS: BP 138/77
[2017-11-19 07:36] VITALS: BP 124/82
[2017-11-19 12:24] VITALS: BP 130/81
--- NOTE | 2017-11-19 13:34 | SOCIAL WORKER PROG NOTE PSYCH ---
Social Work Progress Note Progress Note Ian reported to be feeling much better today. He rated his anxiety as a 2/ 10 and his depression as a 1/10 (10=maximum anxiety/depression). He is anxious to get home, and stated that he feels like he is ready. He and this keno writer / runner spoke about some tangible steps that he and his have taken to come to a compromise about their differing parenting styles. He stated that his 9 year old son will no longer be going to [employer], which had been taking up a lot of their son's time as well as their own time. His son will instead do an online advanced learning program which is less time intensive. Additionally their son will only be pursuing Soccer and no longer Swimming as he likes Soccer better. Ian is happy about both of these decisions and feels that this reduction in activities will help his son behaviorally and will allow for him and his son to have more free time together. Additionally, the family has come up with some "safe words" that they can use when they start to have disagreements. He said instead of raising his voice, he will say the word "rainbow" if he feels that he is beginning to escalate and get upset. Additionally Ian stated that he plans to get a yoga mat so that he can do yoga and stretching while at home which helps him relax. Wildlife Removal Specialist and he also discussed taking some time off before he returns to work. Ian said he may take next week off to get settled and to take care of himself before he returns to work. Ian asked this keno writer / runner if he would be able to leave [facility] as he feels he is ready. His other motivation(s) for wanting to leave this evening is that his would be able to pick him up, and that he would be able to prepare for Shabbat (which begins Friday at ). Wildlife Removal Specialist stated that she would discuss with Sapna Sousa and Dr. Rojas. Ian denied any visual/auditory hallucinations and denied any suicidal ideation. Additionally gave Ian the names and contact information of three FTs in [place] which had been provided by Sapna Sousa. Wildlife Removal Specialist also called Karen Lombardo, Ian's outside psychiatric RN [facility] to try to schedule an appointment for next week. Karen Lombardo called back and directed keno writer / runner to schedule an appointment for Ian through her website. This was done. His appointment is at 10:30AM on November 25.
--- NOTE | 2017-11-19 15:15 | CP SOUTH PROGRESS NOTE PSYCH ---
Psych (Inpt) Progress Note Progress Note The interdisciplinary treatment team met this morning and discussed Ian's treatment and progress Mental Status Examination: Ian reported that he is ready for discharge and feeling much better. He dnied seeing ants or having other visual hallucinations. Denied olfactory hallucinations today. Ian was cooperative/less paranoid. No sedation or tiredness, Patricia affect is of better range, appropriate humor , depressed mood, anxious, no suicidal ideation, no homicidal ideation, Ian was more organized in thought and behavior. He was oriented to time place and person, struggling with attention and concentration Assessment: Ian is a 47-year-old White male who was admitted for increasing psychiatric symptoms over the past few weeks tincluding inability to concentrate , inability to sleep, paranoia, hearing voices and having the sense that he is outside his body, patient has had psychiatric illness since the thought to be bipolar 1 disorder Diagnoses: Bipolar 1 disorder most recent episode depressed with psychotic features Treatment Plan update: Continue inpatient psychiatric care with 15 minute checks. Continue nursing assessments once a shift Continue group therapy, Continue Milieu therapy and activities on the unit Continue Klonopin 1 mg at bedtime Continue Lamictal 150 mg twice daily Continue Sertraline 200 mg daily (at bedtime) Continue Zyprexa to 20 mg at bedtime The patient will be seen daily by psychiatrist for medication management and reevaluation of his mental state
[2017-11-19 15:58] VITALS: BP 121/73
[2017-11-19 19:47] VITALS: BP 130/86
[2017-11-20] MEDS ORDERED: VOLTAREN100 GM TOP (07:45)
[2017-11-20] MEDS ORDERED: DIVALPROEX SOD500 M2 PO (07:45)
[2017-11-20] MEDS ORDERED: LAMICTAL150 M1 PO (07:45)
[2017-11-20] MEDS ORDERED: ZOLOFT100 M1 PO (07:45)
[2017-11-20] MEDS ORDERED: KLONOPIN1 M1 PO (07:45)
[2017-11-20] MEDS ORDERED: HALOPERIDOL5 MG PO (07:45)
[2017-11-20 07:54] VITALS: BP 123/73
--- NOTE | 2017-11-20 08:41 | SOCIAL WORKER PROG NOTE PSYCH ---
Social Work Progress Note Progress Note Met with Ian this morning. He was calm and organized. He denied having any visual hallucinations yesterday or today. He is ready to be discharged from the hospital. Talked about he and his following up with the therapy referrals given for marriage counseling. He shared that he feels his has been more accommodating and more thoughtful of how he is feeling in the last few days. He is looking forward to spending more down time with his son. He also shared that he and his need to look at ways to incorporate some wellness into their daily lives. He is thinking of taking the rest of this week and all of next week off from work and then see how things are. Reviewed his follow up appt. with Karen Lombardo APRN scheduled for next Friday. He appreciated his stay here and stated he was very happy with the services received. His will pick him up around 9am.
--- NOTE | 2017-11-20 10:38 | SOCIAL WORKER PROG NOTE PSYCH ---
Social Work Progress Note Faxed Referral(s) Referred To: Karen Lombardo APRN Transition of Care Documents sent: Health Summary Faxed to: Karen Lombardo APRN Fax #: [phone] Faxed by: Sapna Sousa Date faxed: 11/20/17 Time Faxed: [phone]
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
== END 2017-11-20 09:27 | DRG 885 ==
LOC: ERH 15:53 → ERHI 20:01 → CP SOUTH 20:01 → ENTRNSPT 20:25 → CMPTRNSPT 20:37 → CP SOUTH 20:40
PROVIDERS: Emergency Medicine
DX: F31.9 Bipolar disorder, unspecified (principal)
CPT/HCPCS: 70551; 36415; 80307; 81003; 87086; G0480